=== PATIENT | male | born 1960 | race Caucasian/White ===

== ENCOUNTER → 2020-07-27 | Outpatient (CLI) | payer OTHER, SELFPAY ==
[2020-07-27 10:08] LABS: BUN/CREATININE RATIO 21 (0-10)
[2020-07-28 08:14] LABS: HEP B CORE AB, TOT Negative (Negative)
[2020-07-28 11:14] LABS: HBSAG SCREEN Negative (Negative); HCV AB <0.1 (0.0-0.9)
[2020-07-28 13:09] LABS: RHEUMATOID ARTHRITIS FACTOR 37.9 IU/mL (0.0-13.9)
[2020-07-28 14:11] LABS: ANGIOTENSIN-CONVERTING ENZYME 51 U/L (14-82)
[2020-07-29 23:07] LABS: CCP ANTIBODIES IGG/IGA 10 units (0-19)
== END ==
LOC: LAB 08:29
PROVIDERS: Internal Medicine
DX: D89.89 Other specified disorders involving the immune mechanism, not elsewhere classified (principal); M25.50 Pain in unspecified joint; R76.8 Other specified abnormal immunological findings in serum; Z79.1 Long term (current) use of non-steroidal anti-inflammatories (NSAID); R76.0 Raised antibody titer
CPT/HCPCS: 80053; 82164; 83520; 86200; 86431; 86704; 86803; 87340

== ENCOUNTER → 2021-02-23 | Outpatient (CLI) | payer OTHER ==
[2021-02-23 16:21] LABS: HEMOGLOBIN 12.6 gm/dl (14.0-17.5); RED BLOOD COUNT 4.38 M/UL (4.20-5.50); WHITE BLOOD COUNT 5.2 K/UL (4.5-11.0)
[2021-02-23 16:39] LABS: BUN/CREATININE RATIO 17 (0-10)
[2021-02-24 12:14] LABS: COMPLEMENT C3, SERUM 159 mg/dL (82-167); COMPLEMENT C4, SERUM 25 mg/dL (12-38)
[2021-03-03 08:14] LABS: DSDNA CRITHIDIA LUCILIAE IFA Negative (Negative)
== END ==
LOC: LAB 14:35
PROVIDERS: Internal Medicine
DX: R76.8 Other specified abnormal immunological findings in serum (principal); M32.9 Systemic lupus erythematosus, unspecified; D64.9 Anemia, unspecified
CPT/HCPCS: 36415; 80053; 81001; 82570; 82607; 82728; 82746; 83540; 83550; 84156; 84466; 85025; 85045; 86160; 86162; 86255